=== PATIENT | male | born 1985 | race African-American/Black ===

== ENCOUNTER 2024-02-23 10:29 | Emergency (ER) | payer OTHER ==
[2024-02-23] MEDS ORDERED: KETOROLAC TROMETHAMINE 15 MG/ML VIAL ONE (10:49)
[2024-02-23 11:03] VITALS: BP 138/84; PULSE 77; RESP 14; TEMP 98.1; BMI 34.0
[2024-02-23] MEDS: KETOROLAC TROMETHAMINE 15 MG/ML VIAL IM ONE (11:15)
== END 2024-02-23 11:41 | disposition home or self-care (01) ==
LOC: JER 10:29
PROC: 3E0303Z Introduction of Anti-inflammatory into Peripheral Vein, Open Approach (ICD-10-PCS; principal; 2024-02-23)
DX: S13.4XXA Sprain of ligaments of cervical spine, initial encounter (principal); M54.50 Low back pain, unspecified; V49.40XA Driver injured in collision with unspecified motor vehicles in traffic accident, initial encounter
CPT/HCPCS: 72125-TC; 99284-25